=== PATIENT | female | born 1965 | race African-American/Black ===

== ENCOUNTER 2022-08-16 18:38 | Emergency (ER) | payer OTHER ==
[~2022-08-16] VITALS: Ht 167.6 cm; Wt 5.6 kg
[2022-08-16] MEDS ORDERED: HYDROcodone-ACET 5/325MG TAB PO ONE (20:15)
[2022-08-16] MEDS ORDERED: KETOROLAC TROMETH 60MG/2ML VIAL IM ONE (20:15)
[2022-08-16] MEDS ORDERED: DexAMETHasone SOD PHOS 10MG/1ML VIAL INJ IM ONE (20:15)
[2022-08-16 21:46] VITALS: BP 113/50
[2022-08-16] MEDS ORDERED: IBU600T PO (21:50)
[2022-08-16] MEDS ORDERED: CYCL-839 PO (21:50)
== END 2022-08-16 22:05 | disposition home or self-care (01) ==
LOC: ER 18:41
DX: M51.36 Other intervertebral disc degeneration, lumbar region (principal); M17.0 Bilateral primary osteoarthritis of knee; M25.462 Effusion, left knee; M25.461 Effusion, right knee
CPT/HCPCS: 72100; 73560; 96372; 99284; J1100; J1885